=== PATIENT | female | born 1935 | race Caucasian/White ===

== ENCOUNTER 2016-07-05 11:31 | Inpatient (IN) | payer MEDICARE ==
[2016-07-05 12:19] LABS: ABSOLUTE BASOPHILS # (AUTO) 0.1 10^3/uL (0.0-0.2); ABSOLUTE EOSINOPHILS # (AUTO) 0.1 10^3/uL (0.0-0.6); ABSOLUTE LYMPHOCYTES (AUTO) 1.3 10^3/uL (0.5-4.7); ABSOLUTE MONOCYTES (AUTO) 1.2 10^3/uL (0.1-1.4); ABSOLUTE NEUT (AUTO) 15.1 10^3/uL (1.7-8.2); BASOPHILS % (AUTO) 0.7 % (0-2); EOSINOPHILS % (AUTO) 0.4 % (0-6); HEMATOCRIT 33.5 % (36.0-47.0); HEMOGLOBIN 10.7 g/dL (12.0-15.5); HGB HCT DIFFERENCE -1.4; LYMPHOCYTES % (AUTO) 7.4 % (13-45); MEAN CORPUSCULAR HEMOGLOBIN 33.1 pg (27.0-33.4); MEAN CORPUSCULAR VOLUME 104 fl (80-97); MONOCYTES % (AUTO) 6.8 % (3-13); RED BLOOD COUNT 3.24 10^6/uL (3.72-5.28); RED CELL DISTRIBUTION WIDTH 13.2 % (11.5-14.0); SEGMENTED NEUTROPHILS % (AUTO) 84.7 % (42-78); WHITE BLOOD COUNT 17.9 10^3/uL (4.0-10.5)
[2016-07-05 12:46] LABS: ALANINE AMINOTRANSFERASE 21 U/L (9-52); ALBUMIN 3.3 g/dL (3.5-5.0); ALKALINE PHOSPHATASE 74 U/L (38-126); ANION GAP 11 (5-19); ASPARTATE AMINO TRANSFERASE 17 U/L (14-36); BILIRUBIN,TOTAL 0.7 mg/dL (0.2-1.3); BLOOD UREA NITROGEN 16 mg/dL (7-20); CALCIUM 8.7 mg/dL (8.4-10.2); CARBON DIOXIDE 28 mmol/L (22-30); CHLORIDE 96 mmol/L (98-107); CREATININE RESULT 0.54 mg/dL (0.52-1.25); GLUCOSE 118 mg/dL (75-110); POTASSIUM 4.6 mmol/L (3.6-5.0); SODIUM 135.3 mmol/L (137-145); TOTAL PROTEIN 6.8 g/dL (6.3-8.2)
[2016-07-05 12:47] LABS: CREATINE KINASE < 20 U/L (30-135)
[2016-07-05 12:56] LABS: CREATINE KINASE MB 0.36 ng/mL (<4.55)
[2016-07-05 12:57] LABS: TROPONIN I < 0.012 ng/mL
[2016-07-05] MEDS ORDERED: IPRATROPIUM/ALBUTEROL 0.5-2.5 MG/3 ML AMPUL NEB ONE (13:30)
[2016-07-05] MEDS ORDERED: CEFEPIME 1 GM/D5W RTU 50 ML IV ONE (14:49)
[2016-07-05] MEDS ORDERED: VANCOMYCIN HCL INJ 1000 MG VIAL IV ONE (14:49)
[2016-07-05] MEDS ORDERED: LEVALBUTEROL HCL NEB 1.25 MG/3 ML AMPUL NEB PRN (15:17)
[2016-07-05 15:25] LABS: APPEARANCE,URINE SLIGHTLY-CLOUDY; BILIRUBIN,URINE NEGATIVE (NEGATIVE); GLUCOSE, URINE NEGATIVE (NEGATIVE); KETONES,URINE NEGATIVE (NEGATIVE); LEUKOCYTE ESTERASE,URINE LARGE (NEGATIVE); NITRITE,URINE NEGATIVE (NEGATIVE); PROTEIN,URINE NEGATIVE (NEGATIVE); URINE SPECIFIC GRAVITY 1.017; UROBILINOGEN,URINE NEGATIVE mg/dL (<2.0)
--- NOTE | 2016-07-05 15:48 | ER Document Report ---
ED General - General Chief Complaint: Abdominal Pain >50 Stated Complaint: ABDOMINAL PAIN Time seen by provider: 15:46 Mode of Arrival: Ambulatory Information source: Patient Notes: This is a 80-year-old female with a history of CHF, recent admission to [facility], who is brought into the emergency room with left chest wall pain along with increased labored breathing. Patient states she's had some chills and subjective fevers. TRAVEL OUTSIDE OF THE [place] IN LAST 30 DAYS: No - HPI Onset: Yesterday Onset/Duration: Gradual Quality of pain: Dull Severity: None Pain Level: Denies Associated symptoms: Shortness of breath Exacerbated by: Movement Relieved by: Denies Similar symptoms previously: Yes Recently seen / treated by doctor: No - Related Data Allergies/Adverse Reactions: No Known Allergies Allergy (Verified 07/05/16 12:02) Home Medications: Current Home Medications Atorvastatin Calcium 40 mg PO QHS 07/05/16 [History] Past Medical History - General Information source: Patient - Social History Smoking Status: Former Smoker Cigarette use (# per day): No Chew tobacco use (# tins/day): No Frequency of alcohol use: None Drug Abuse: None Lives with: Family Family History: Reviewed & Not Pertinent Patient has suicidal ideation: No Patient has homicidal ideation: No - Past Medical History Cardiac Medical History: Reports: Hx Atrial Fibrillation, Hx Congestive Heart Failure, Hx Hypertension Pulmonary Medical History: Reports: Hx Asthma, Hx Bronchitis, Hx COPD, Hx Pneumonia Denies: Hx Sleep Apnea, Hx Tuberculosis Renal/ Medical History: Denies: Hx Peritoneal Dialysis GI Medical History: Reports: Hx Gastroesophageal Reflux Disease Musculoskeltal Medical History: Reports Hx Arthritis Psychiatric Medical History: Reports: Hx Depression Past Surgical History: Reports: Hx Abdominal Surgery - abd hernia repair, Hx Appendectomy, Hx Cholecystectomy, Hx Neurologic Surgery - TENS unit, Hx Orthopedic Surgery - left wrist; left knee replacement. Denies: Hx Pacemaker - Immunizations Hx Diphtheria, Pertussis, Tetanus Vaccination: No Hx Pneumococcal Vaccination: 06/21/10 Review of Systems - Review of Systems Constitutional: denies: Chills, Fever EENT: No symptoms reported Cardiovascular: See HPI Respiratory: See HPI Gastrointestinal: No symptoms reported Genitourinary: No symptoms reported Female Genitourinary: No symptoms reported Musculoskeletal: No symptoms reported Skin: No symptoms reported Hematologic/Lymphatic: No symptoms reported Neurological/Psychological: See HPI Physical Exam - Vital signs Vitals: Temp Pulse Resp BP Pulse Ox 98.7 F 72 18 124/65 94 07/05/16 11:39 07/05/16 11:39 07/05/16 11:39 07/05/16 11:39 07/05/16 11:39 Notes: Physical exam: GENERAL: 80-year-old female, alert and oriented 3, she does appear dyspneic HEAD: Atraumatic, normocephalic. EYES: Pupils equal round and reactive to light, extraocular movements intact, sclera anicteric, conjunctiva are normal. ENT: TMs normal, nares patent, oropharynx clear without exudates. Moist mucous membranes. NECK: Normal range of motion, supple without lymphadenopathy or JVD. LUNGS: Decreased breath sounds at the left base. HEART: Regular rate and rhythm without murmurs, rubs or gallops. ABDOMEN: Soft, nontender, normoactive bowel sounds. No guarding, no rebound. No masses appreciated. EXTREMITIES: Normal range of motion, no pitting or edema. No clubbing or cyanosis. NEUROLOGICAL: Cranial nerves II through XII grossly intact. Normal speech, normal gait. PSYCH: Normal mood, normal affect. SKIN: Warm, Dry, normal turgor, no rashes or lesions noted. Course - Re-evaluation Re-evalutation: 07/05/16 15:47 Note: The patient does appear to have some dyspnea and she does have a history of COPD in the past as well as CHF. The chest x-ray does show a consolidation in the left lower lobe with possible effusion. Her labs reveal a leukocytosis. The patient does have a recent admission so I will cover her for hospital- acquired pneumonia. 07/05/16 15:48 I discussed the case with the hospitalist (Dr Lacey) : he advised me to put Dr. Carreno as the admitting physician so that he will olive picker care on Wednesday or Wednesday, and that the hospitalist service will cover her until that time (i.e: He will be taking care of the admission this evening). 07/05/16 21:03 - Vital Signs Vital signs: Temp Pulse Resp BP Pulse Ox 97.7 F 84 20 111/63 99 07/05/16 18:15 07/05/16 20:40 07/05/16 20:40 07/05/16 18:15 07/05/16 18:15 - Laboratory Result Diagrams: 07/05/16 12:00 07/05/16 12:00 Laboratory results interpreted by me: 07/05/16 07/05/16 07/05/16 12:00 12:00 12:00 WBC 17.9 H RBC 3.24 L Hgb 10.7 L Hct 33.5 L MCV 104 H Seg Neutrophils % 84.7 H Lymphocytes % 7.4 L Absolute Neutrophils 15.1 H Sodium 135.3 L Chloride 96 L Glucose 118 H Creatine Kinase < 20 L NT-Pro-B Natriuret Pep 1680 H Albumin 3.3 L Ur Leukocyte Esterase Urine Ascorbic Acid 07/05/16 14:50 WBC RBC Hgb Hct MCV Seg Neutrophils % Lymphocytes % Absolute Neutrophils Sodium Chloride Glucose Creatine Kinase NT-Pro-B Natriuret Pep Albumin Ur Leukocyte Esterase LARGE H Urine Ascorbic Acid 20 H - Diagnostic Test Radiology reviewed: Image reviewed, Reports reviewed - X-ray shows a consolidation in the left lower lobe - EKG Interpretation by Me Rhythm: A.Fib - EKG shows an atrial fibrillation with a ventricular rate of 79, no acute ST-T wave changes Critical Care Note - Critical Care Note Total time excluding time spent on procedures (mins): 60 Discharge - Discharge Clinical Impression: pneumonia Condition: Serious Disposition: ADMITTED INPATIENT Admitting Provider: Ev Lacey is covering Unit Admitted: Telemetry
--- NOTE | 2016-07-05 16:00 | PDOC H&P ---
History of Present Illness Admission Date/PCP: SOPHIA NICOLAS Patient complains of: Left-sided chest pain History of Present Illness: CRUZ DILL is a 80 year old female with history of COPD, atrial fibrillation, hypertension, recently diagnosed with pericardial effusion transferred to [facility] due to tamponade apparently was brought to the emergency room because of left-sided chest pain. The patient was discharged from [facility] last week. According to the family nor pericardiocentesis nor periglandular window was performed. Apparently an echocardiogram was repeated and there was no reported temponade nor significant effusion. She was treated with antibiotic for a "small touch of pneumonia" with unknown antibiotics. The patient apparently is a very poor historian due to underlying dementia and is unreliable and family at bedside. Patient for the past few days has been sleeping more than usual. Her shortness of breath really has not improved. She has intermittent wheezing. She has a dry cough. Earlier today she reports left-sided chest pain is why the patient was brought to the hospital for evaluation. No sweating reported. No diarrhea reported other than prior history of colitis in the past. In the emergency room, chest x-ray revealed left lower lobe infiltrate and the patient was referred for admission. Vancomycin and cefepime was given. Past Medical History Past Medical History: Medication reconciliation pending verification from the patient's pharmacist. Cardiac Medical History: Reports: Atrial Fibrillation, Congestive Heart Failure , Hypertension Pulmonary Medical History: Reports: Asthma, Bronchitis, Chronic Obstructive Pulmonary Disease (COPD), Pneumonia Denies: Sleep Apnea, Tuberculosis GI Medical History: Reports: Gastroesophageal Reflux Disease Musculoskeltal Medical History: Reports: Arthritis Psychiatric Medical History: Reports: Depression Past Surgical History Past Surgical History: Reports: Appendectomy, Cholecystectomy, Orthopedic Surgery - left wrist; left knee replacement Denies: Pacemaker Social History Information Source: Relative Smoking Status: Former Smoker Frequency of Alcohol Use: None Hx Recreational Drug Use: No Drugs: None Hx Prescription Drug Abuse: No Family History Family History: None, Reviewed & Not Pertinent Parental Family History Reviewed: Yes Children Family History Reviewed: Yes Sibling(s) Family History Reviewed.: Yes Medication/Allergy Home Medications: Albuterol Sulfate [Proair HFA] 2 puff IH Q4H PRN 05/05/13 Cetirizine HCl [Zyrtec 10 mg Tablet] 1 tab PO DAILY 05/05/13 Diltiazem HCl [Diltiazem ER] 180 mg PO QAM 05/05/13 Duloxetine HCl [Cymbalta] 60 mg PO DAILY 05/05/13 Lisinopril 10 mg PO DAILY 05/05/13 Montelukast Sodium 10 mg PO DAILY 05/05/13 Oxybutynin Chloride 5 mg PO DAILY 05/05/13 Pnv with Ca,No.72/Iron,Carb/FA [ Plus Iron Tablet] 1 each PO DAILY 05/05 Ca Cmb No.1/Vit D3/B-6/FA/B12 [Vitamin D3 1,000 Unit Tablet] 1 tab PO DAILY 07/04 Donepezil HCl [Aricept 5 mg Tablet] 5 mg PO DAILY 02/19/14 Furosemide [Lasix 20 mg Tablet] 20 mg PO PRN PRN 02/19/14 Lorazepam [Ativan 1 mg Tablet] 1 mg PO BID 02/19/14 Tiotropium Thomas [Spiriva Handihaler 18 mcg/dose (30 Dose)] 1 cap IH DAILY 07/04 Alendronate Sodium [Fosamax 70 mg Tablet] 70 mg PO ASDIR PRN 06/19/16 Apixaban [Eliquis] 5 mg PO BID 06/19/16 Allergies/Adverse Reactions: No Known Allergies Allergy (Verified 07/05/16 12:02) Review of Systems ROS unobtainable: Due to mental status, Other - Ordered and provided on the history, no other symptoms reported. There is no diaphoresis no nausea or vomiting, no syncopal episode reported. Family provided information. Patient does not complain until today. Physical Exam Vital Signs: Temp Pulse Resp BP Pulse Ox 98.7 F 72 22 H 131/74 H 98 07/05/16 12:02 07/05/16 11:39 07/05/16 14:49 07/05/16 14:49 07/05/16 14:49 Intake & Output 07/04/16 07/05/16 07/06/16 06:59 06:59 06:59 Weight 61.6 kg General appearance: PRESENT: mild distress, well-developed, well-nourished Head exam: PRESENT: atraumatic, normocephalic Eye exam: PRESENT: conjunctiva pink, EOMI, PERRLA - Sluggish bilateral. ABSENT : scleral icterus Ear exam: PRESENT: normal external ear exam. ABSENT: drainage Mouth exam: PRESENT: moist, neck supple, tongue midline Throat exam: ABSENT: post pharyngeal erythema, tonsillar erythema, tonsillar exudate Neck exam: ABSENT: carotid bruit, JVD, lymphadenopathy, thyromegaly Respiratory exam: PRESENT: decreased breath sounds - Left lower lung field, rales - Dry rales. Bilateral lower lung e[place], wheezes - Occasional posteriorly bilateral. ABSENT: rhonchi Cardiovascular exam: PRESENT: irregular rhythm, systolic murmur - Aortic area.. ABSENT: diastolic murmur, rubs Pulses: PRESENT: normal dorsalis pedis pul Vascular exam: PRESENT: normal capillary refill GI/Abdominal exam: PRESENT: normal bowel sounds, soft. ABSENT: distended, guarding, mass, organolmegaly, rebound, tenderness Rectal exam: PRESENT: deferred Extremities exam: PRESENT: full ROM. ABSENT: calf tenderness, clubbing, pedal edema Neurological exam: PRESENT: alert, awake Psychiatric exam: PRESENT: appropriate affect, normal mood. ABSENT: agitated Skin exam: PRESENT: dry, intact, warm. ABSENT: cyanosis, rash Results Laboratory Results: 07/05/16 12:00 07/05/16 12:00 07/05/16 07/05/16 07/05/16 12:00 12:00 14:50 WBC 17.9 H RBC 3.24 L Hgb 10.7 L Hct 33.5 L MCV 104 H MCH 33.1 MCHC 32.0 RDW 13.2 Plt Count 391 Seg Neutrophils % 84.7 H Lymphocytes % 7.4 L Monocytes % 6.8 Eosinophils % 0.4 Basophils % 0.7 Absolute Neutrophils 15.1 H Absolute Lymphocytes 1.3 Absolute Monocytes 1.2 Absolute Eosinophils 0.1 Absolute Basophils 0.1 Sodium 135.3 L Potassium 4.6 Chloride 96 L Carbon Dioxide 28 Anion Gap 11 BUN 16 Creatinine 0.54 Est GFR ( Amer) > 60 Est GFR (Non-Af Amer) > 60 Glucose 118 H Calcium 8.7 Total Bilirubin 0.7 AST 17 ALT 21 Alkaline Phosphatase 74 Total Protein 6.8 Albumin 3.3 L Urine Color YELLOW Urine Appearance SLIGHTLY-CLOUDY Urine pH 6.0 Ur Specific [place] 1.017 Urine Protein NEGATIVE Urine Glucose (UA) NEGATIVE Urine Ketones NEGATIVE Urine Blood NEGATIVE Urine Nitrite NEGATIVE Ur Leukocyte Esterase LARGE H Urine WBC (Auto) 18 Urine RBC (Auto) 1 07/05/16 07/05/16 12:00 12:00 Creatine Kinase < 20 L CK-MB (CK-2) 0.36 Troponin I < 0.012 NT-Pro-B Natriuret Pep 1680 H Impressions: Chest X-Ray 07/05/16 00:00 IMPRESSION: Consolidative process in the left lung base as noted above Assessment & Plan - Diagnosis (1) COPD exacerbation Is this a current diagnosis for this admission?: Yes (2) Pneumonia Qualifiers: Pneumonia type: due to unspecified organism Laterality: left Lung location: lower lobe of lung Qualified Code(s): J18.1 - Lobar pneumonia, unspecified organism Is this a current diagnosis for this admission?: Yes (3) Pericardial effusion Is this a current diagnosis for this admission?: Yes (4) Anemia of chronic disease Is this a current diagnosis for this admission?: Yes (5) Dementia Qualifiers: Dementia type: unspecified type Dementia behavioral disturbance: without behavioral disturbance Qualified Code(s): F03.90 - Unspecified dementia without behavioral disturbance Is this a current diagnosis for this admission?: Yes (6) Depression Qualifiers: Depression Type: unspecified Qualified Code(s): F32.9 - Major depressive disorder, single episode, unspecified Is this a current diagnosis for this admission?: Yes (7) Hypertension Qualifiers: Hypertension type: essential hypertension Qualified Code(s): I10 - Essential (primary) hypertension Is this a current diagnosis for this admission?: Yes (8) Osteoarthritis Qualifiers: Osteoarthritis location: unspecified site Osteoarthritis type: unspecified Qualified Code(s): M19.90 - Unspecified osteoarthritis, unspecified site Is this a current diagnosis for this admission?: Yes (9) Osteoporosis Is this a current diagnosis for this admission?: Yes (10) Chronic atrial fibrillation Is this a current diagnosis for this admission?: Yes (11) Type II diabetes mellitus Qualifiers: Diabetes mellitus complication status: with unspecified complications Diabetes mellitus longterm insulin use: without longterm use Qualified Code(s): E11.8 - Type 2 diabetes mellitus with unspecified complications; Z79.4 - MCC (current) use of insulin Is this a current diagnosis for this admission?: Yes - Time Time Spent: 50 to 70 Minutes - Inpatient Certification Based on my medical assessment, after consideration of the patient's comorbidities, presenting symptoms, or acuity I expect that the services needed warrant INPATIENT care.: Yes I certify that my determination is in accordance with my understanding of Medicare's requirements for reasonable and necessary INPATIENT services [42 CFR 412.3e].: Yes Medical Necessity: Significant Comorbidiites Make Outpatient Treatment Too Risky , Need Close Monitoring Due to Risk of Patient Decompensation, Need for IV Antibiotics Post Hospital Care: D/C Pediatric Immunologist Documentation - Plan Summary Plan Summary: The patient will be admitted to telemetry. We will culture the sputum and blood. We will begin Levaquin and cefepime intravenously. We will gently hydrate the patient. Round without bronchodilators will be started as well with oral steroids. We will obtain CT scan of the chest to check for loculated effusion and likewise check pericardial effusion as well. She will be on adequate place for her A. fib and no need for DVT prophylaxis. Supplemental oxygen will be given we will continue Cardizem. We will begin sliding scale insulin coverage as well. Further testing depending on initial evaluation as outlined above. We will obtain records of recent hospitalization from [facility].
[2016-07-05] MEDS ORDERED: DONEPEZIL HCL 5 MG TABLET PO ONE (16:30)
[2016-07-05] MEDS ORDERED: OXYBUTYNIN CHLORIDE 5 MG TABLET PO ONE (16:30)
[2016-07-05] MEDS ORDERED: PREDNISONE 20 MG TABLET PO ONE ×2 (16:30→20:15)
[2016-07-05] MEDS ORDERED: LISINOPRIL 10 MG TABLET PO ONE (16:30)
[2016-07-05] MEDS ORDERED: DULOXETINE HCL 30 MG CAPSULE.DR PO ONE ×2 (16:30→20:15)
[2016-07-05] MEDS ORDERED: MONTELUKAST SODIUM 10 MG TABLET PO ONE (17:00)
[2016-07-05] MEDS ORDERED: DILTIAZEM HCL 180 MG CAPSULE.CR PO ONE (17:00)
[2016-07-05] MEDS ORDERED: APIXABAN 5 MG TABLET PO SCH (18:00)
[2016-07-05] MEDS ORDERED: LEVOFLOXACIN 750 MG/D5W RTU 750 MG/150 ML RTUPB IV SCH (18:00)
--- NOTE | 2016-07-05 18:34 | EKG REPORT ---
SEVERITY:- ABNORMAL ECG - ATRIAL FIBRILLATION, V-RATE 56-94 PAIRED VENTRICULAR PREMATURE COMPLEXES ABERRANT COMPLEX, POSSIBLY SUPRAVENTRICULAR PROBABLE ANTEROSEPTAL INFARCT, AGE INDETERM : Confirmed by: Robyn Stratton MD 05-Jul-2016 18:33:47
[2016-07-05] MEDS: NORMAL SALINE 1000 ML 1,000 ML IV PRN (18:40)
[2016-07-05] MEDS: LORAZEPAM 1 MG TABLET PO SCH (19:56)
[2016-07-05] MEDS: LEVALBUTEROL HCL NEB 1.25 MG/3 ML AMPUL NEB SCH (20:38)
[2016-07-05] MEDS: IPRATROPIUM BROMIDE 0.02% NEB 0.5 MG/2.5 ML AMPUL NEB SCH (20:39)
[2016-07-05] MEDS ORDERED: CEFEPIME 2 GM/D5W RTU 2 GM/50 ML RTUPB IV SCH (22:00)
[2016-07-05] MEDS ORDERED: CEFEPIME INJ 2 GM VIAL ONE (23:20)
[2016-07-05] MEDS: DONEPEZIL HCL 5 MG TABLET PO SCH (23:55)
[2016-07-05] MEDS: LISINOPRIL 10 MG TABLET PO SCH (23:56)
[2016-07-05] MEDS: GUAIFENESIN 600 MG TABLET.SA PO SCH (23:57)
[2016-07-05] MEDS: APIXABAN 5 MG TABLET PO SCH (23:57)
[2016-07-06] MEDS: MONTELUKAST SODIUM 10 MG TABLET PO SCH ×2 (00:03→22:55)
[2016-07-06] MEDS: LEVALBUTEROL HCL NEB 1.25 MG/3 ML AMPUL NEB SCH ×4 (02:32→19:45)
[2016-07-06] MEDS: IPRATROPIUM BROMIDE 0.02% NEB 0.5 MG/2.5 ML AMPUL NEB SCH ×4 (02:32→19:45)
[2016-07-06 06:03] LABS: HEMATOCRIT 31.5 % (36.0-47.0); HGB HCT DIFFERENCE -1.5; MEAN CORPUSCULAR HGB CONC 31.8 g/dL (32.0-36.0); MEAN CORPUSCULAR VOLUME 104 fl (80-97); RED BLOOD COUNT 3.04 10^6/uL (3.72-5.28); RED CELL DISTRIBUTION WIDTH 13.1 % (11.5-14.0); WHITE BLOOD COUNT 13.6 10^3/uL (4.0-10.5)
[2016-07-06 06:18] LABS: ANION GAP 13 (5-19); BLOOD UREA NITROGEN 17 mg/dL (7-20); CALCIUM 8.6 mg/dL (8.4-10.2); CARBON DIOXIDE 26 mmol/L (22-30); CHLORIDE 97 mmol/L (98-107); CREATININE RESULT 0.65 mg/dL (0.52-1.25); GLUCOSE 197 mg/dL (75-110); POTASSIUM 4.8 mmol/L (3.6-5.0)
[2016-07-06 06:42] LABS: BASOPHILS % (MANUAL) 0 % (0-2); EOSINOPHILS % (MANUAL) 0 % (0-6); LYMPHOCYTES % (MANUAL) 2 % (13-45); TOTAL CELLS COUNTED 100; TOXIC GRANULATION SLIGHT
[2016-07-06 06:43] LABS: OVALOCYTES 1+; PLATELET CLUMPS PRESENT
[2016-07-06] MEDS: LANSOPRAZOLE 30 MG TAB.RAP.DR PO SCH (07:08)
[2016-07-06] MEDS: DILTIAZEM HCL 180 MG CAPSULE.CR PO SCH (08:50)
[2016-07-06] MEDS ORDERED: LISINOPRIL 10 MG TABLET PO SCH (10:00)
[2016-07-06] MEDS ORDERED: (PENDING PHARMACY ID) (Duloxetine Hcl [Cymbalta] 30 MG) PO SCH (10:00)
[2016-07-06] MEDS: TIOTROPIUM BROMIDE DPI 5 CAP/KIT (18 MCG/CAP) IH SCH (10:12)
[2016-07-06] MEDS: GUAIFENESIN 600 MG TABLET.SA PO SCH ×2 (10:12→22:55)
[2016-07-06] MEDS: PREDNISONE 20 MG TABLET PO SCH (10:12)
[2016-07-06] MEDS: APIXABAN 5 MG TABLET PO SCH ×2 (10:12→22:55)
[2016-07-06] MEDS: DULOXETINE HCL 30 MG CAPSULE.DR PO SCH (10:12)
[2016-07-06] MEDS: CEFEPIME HCL 2 GM in DEXTROSE 5%-WATER 50 ML IV SCH ×2 (10:14→22:55)
[2016-07-06] MEDS: OXYBUTYNIN CHLORIDE 5 MG TABLET PO SCH (10:18)
[2016-07-06] MEDS: LORAZEPAM 1 MG TABLET PO SCH ×2 (10:22→17:28)
--- NOTE | 2016-07-06 17:45 | PDOC PROGRESS REPORT ---
Subjective Progress Note for:: 07/06/16 Subjective:: 80 yr old woman that is admitted for left lower lobe pneumonia. She is feeling better and chest pain and dyspnea have decreased. We will monitor her closely.We will follow up cultures and daily CBC. Physical Exam Vital Signs: Temp Pulse Resp BP Pulse Ox 98.2 F 73 20 103/53 L 99 07/06/16 16:24 07/06/16 16:24 07/06/16 16:24 07/06/16 16:24 07/06/16 16:24 Intake & Output 07/05/16 07/06/16 07/07/16 06:59 06:59 06:59 Intake Total 1252 Balance 1252 Weight 58 kg General appearance: PRESENT: no acute distress, well-developed, well-nourished Head exam: PRESENT: atraumatic Eye exam: PRESENT: EOMI, PERRLA Ear exam: PRESENT: normal external ear exam, TM's normal bilaterally Mouth exam: PRESENT: neck supple, tongue midline Respiratory exam: PRESENT: crackles, decreased breath sounds Cardiovascular exam: PRESENT: irregular rhythm, +S1, +S2 Pulses: PRESENT: +1 pedal pulses bilateral GI/Abdominal exam: PRESENT: normal bowel sounds, soft Musculoskeletal exam: PRESENT: ambulatory Neurological exam: PRESENT: oriented to person, oriented to place, oriented to time, CN II-XII grossly intact Psychiatric exam: PRESENT: normal mood Results Laboratory Results: 07/06/16 05:49 07/06/16 05:49 07/06/16 07/06/16 05:49 05:49 WBC 13.6 H RBC 3.04 L Hgb 10.0 L Hct 31.5 L MCV 104 H MCH 33.0 MCHC 31.8 L RDW 13.1 Plt Count 345 Seg Neutrophils % Not Reportable Lymphocytes % Not Reportable Monocytes % Not Reportable Eosinophils % Not Reportable Basophils % Not Reportable Absolute Neutrophils Not Reportable Absolute Lymphocytes Not Reportable Absolute Monocytes Not Reportable Absolute Eosinophils Not Reportable Absolute Basophils Not Reportable Sodium 136.0 L Potassium 4.8 Chloride 97 L Carbon Dioxide 26 Anion Gap 13 BUN 17 Creatinine 0.65 Est GFR ( Amer) > 60 Est GFR (Non-Af Amer) > 60 Glucose 197 H Calcium 8.6 07/05/16 07/05/16 16:07 16:07 Creatine Kinase < 20 L Troponin I < 0.012 Impressions: Chest X-Ray 07/05/16 00:00 IMPRESSION: Consolidative process in the left lung base as noted above Chest CT 07/05/16 15:27 IMPRESSION: 1. Re- demonstration of a left sided pleural effusion, layering. Adjacent compressive atelectasis versus consolidation. Background of peripheral scarring/ fibrosis bilaterally. 2. Scant pericardial effusion. Ectatic ascending aorta. Assessment & Plan - Diagnosis (1) Pneumonia Qualifiers: Pneumonia type: due to unspecified organism Laterality: left Lung location: lower lobe of lung Qualified Code(s): J18.1 - Lobar pneumonia, unspecified organism Is this a current diagnosis for this admission?: YesPlan: Ct with Cefepime 2 G q12h IV; Levaquin 750 mg q48h IV; Ct with Oxygen by N/C 2 L /min; ct Mucinex 600 mg BID po; ct with Tylenol 650 mg q6h po prn; f/u cultures. (2) COPD exacerbation Is this a current diagnosis for this admission?: YesPlan: Ct with Oxygen by N/C 2 L/min; Atropine 0.5 mg q6h; Xopenex 1.25 mg q6h; Xopenex 1.25 mg q2h pr; Ct with Prednisone 60 mg qd po; Singulair 10 mg qd; Spiriva 18 mcg daily. (3) Atrial fibrillation with RVR Is this a current diagnosis for this admission?: YesPlan: Ct with Eliquis 5 mg BID PO; Cardizem CD 180 mg daily po. (4) Hypertension Qualifiers: Hypertension type: essential hypertension Qualified Code(s): I10 - Essential (primary) hypertension Is this a current diagnosis for this admission?: YesPlan: Ct with Lisinopril 10 mg daily po; Cardizem CD 180 mg daily po; 2 G sodium diet. (5) Congestive heart failure Is this a current diagnosis for this admission?: YesPlan: Ct with daily wt; strict input/out part chart; Lisinopril 10 mg daily po. (6) Reflux esophagitis Is this a current diagnosis for this admission?: YesPlan: Ct with Prevacid 30 mg daily po. (7) Overactive bladder Is this a current diagnosis for this admission?: YesPlan: Ct with Oxybutynin 5 mg daily po. (8) Anemia of chronic disease Is this a current diagnosis for this admission?: YesPlan: Ct with daily CBC. (9) Depression Qualifiers: Depression Type: unspecified Qualified Code(s): F32.9 - Major depressive disorder, single episode, unspecified Is this a current diagnosis for this admission?: YesPlan: Ct with Cymbalta 30 mg daily pO. (10) Anxiety disorder Is this a current diagnosis for this admission?: YesPlan: Ct with Ativan 0.5 mg daily po prn. (11) Dementia Qualifiers: Dementia type: unspecified type Dementia behavioral disturbance: without behavioral disturbance Qualified Code(s): F03.90 - Unspecified dementia without behavioral disturbance Is this a current diagnosis for this admission?: YesPlan: Ct with Aricept 5mg qhs po. (12) DVT prophylaxis Is this a current diagnosis for this admission?: YesPlan: Ct with Eliquis 5 mg BID; ct with SCD.
[2016-07-06] MEDS: DONEPEZIL HCL 5 MG TABLET PO SCH (22:55)
[2016-07-06] MEDS: LISINOPRIL 10 MG TABLET PO SCH (22:56)
[2016-07-07] MEDS: IPRATROPIUM BROMIDE 0.02% NEB 0.5 MG/2.5 ML AMPUL NEB SCH ×4 (01:56→19:32)
[2016-07-07] MEDS: LEVALBUTEROL HCL NEB 1.25 MG/3 ML AMPUL NEB SCH ×4 (01:56→19:31)
[2016-07-07] MEDS: LANSOPRAZOLE 30 MG TAB.RAP.DR PO SCH (05:10)
[2016-07-07 06:55] LABS: ABSOLUTE LYMPHOCYTES (AUTO) 0.8 10^3/uL (0.5-4.7); ABSOLUTE MONOCYTES (AUTO) 0.4 10^3/uL (0.1-1.4); ABSOLUTE NEUT (AUTO) 11.6 10^3/uL (1.7-8.2); BASOPHILS % (AUTO) 0.2 % (0-2); HEMATOCRIT 28.8 % (36.0-47.0); HGB HCT DIFFERENCE -1.8; LYMPHOCYTES % (AUTO) 6.5 % (13-45); MEAN CORPUSCULAR HEMOGLOBIN 32.9 pg (27.0-33.4); MEAN CORPUSCULAR HGB CONC 31.2 g/dL (32.0-36.0); MEAN CORPUSCULAR VOLUME 105 fl (80-97); MONOCYTES % (AUTO) 3.4 % (3-13); RED BLOOD COUNT 2.73 10^6/uL (3.72-5.28); RED CELL DISTRIBUTION WIDTH 13.3 % (11.5-14.0); SEGMENTED NEUTROPHILS % (AUTO) 89.9 % (42-78); WHITE BLOOD COUNT 12.9 10^3/uL (4.0-10.5)
[2016-07-07 07:11] LABS: ALANINE AMINOTRANSFERASE 21 U/L (9-52); ALBUMIN 2.9 g/dL (3.5-5.0); ALKALINE PHOSPHATASE 60 U/L (38-126); ANION GAP 11 (5-19); ASPARTATE AMINO TRANSFERASE 22 U/L (14-36); BILIRUBIN,TOTAL 0.2 mg/dL (0.2-1.3); BLOOD UREA NITROGEN 20 mg/dL (7-20); CALCIUM 8.8 mg/dL (8.4-10.2); CARBON DIOXIDE 26 mmol/L (22-30); CHLORIDE 99 mmol/L (98-107); CREATININE RESULT 0.63 mg/dL (0.52-1.25); GLUCOSE 150 mg/dL (75-110); POTASSIUM 5.6 mmol/L (3.6-5.0); SODIUM 135.8 mmol/L (137-145); TOTAL PROTEIN 6.2 g/dL (6.3-8.2)
[2016-07-07] MEDS: DILTIAZEM HCL 180 MG CAPSULE.CR PO SCH (08:26)
[2016-07-07] MEDS: GUAIFENESIN 600 MG TABLET.SA PO SCH ×2 (09:36→21:44)
[2016-07-07] MEDS: APIXABAN 5 MG TABLET PO SCH ×2 (09:36→21:44)
[2016-07-07] MEDS: DULOXETINE HCL 30 MG CAPSULE.DR PO SCH (09:36)
[2016-07-07] MEDS: PREDNISONE 20 MG TABLET PO SCH (09:36)
[2016-07-07] MEDS: OXYBUTYNIN CHLORIDE 5 MG TABLET PO SCH (09:37)
[2016-07-07] MEDS: TIOTROPIUM BROMIDE DPI 5 CAP/KIT (18 MCG/CAP) IH SCH (09:38)
[2016-07-07] MEDS: LORAZEPAM 1 MG TABLET PO SCH ×2 (09:39→17:33)
[2016-07-07] MEDS: CEFEPIME HCL 2 GM in DEXTROSE 5%-WATER 50 ML IV SCH ×2 (09:41→21:40)
[2016-07-07] MEDS ORDERED: SODIUM POLYSTYRENE SULFONATE 15 GM/60 ML PO ONE (14:30)
--- NOTE | 2016-07-07 16:55 | PDOC PROGRESS REPORT ---
Subjective Progress Note for:: 07/07/16 Subjective:: 80 yr old woman that is admitted for left lower lobe pneumonia. She is feeling better and chest pain and dyspnea have decreased. We will monitor her closely.Her urine culture showed E.fecalis group D. We will D/C Levaquin and switch her to Penicillin-V K. Her Potassium was 5.6; we will give her Kayexelate 30 g pox1 and repeat chem. 7 in am. Physical Exam Vital Signs: Temp Pulse Resp BP Pulse Ox 99.3 F 83 20 136/80 H 99 07/07/16 15:54 07/07/16 15:54 07/07/16 15:54 07/07/16 15:54 07/07/16 15:54 Intake & Output 07/06/16 07/07/16 07/08/16 06:59 06:59 06:59 Intake Total 1252 2570 Balance 1252 2570 Weight 58 kg 60.6 kg General appearance: PRESENT: no acute distress, well-developed, well-nourished Head exam: PRESENT: atraumatic, normocephalic Eye exam: PRESENT: EOMI, PERRLA Ear exam: PRESENT: normal external ear exam, TM's normal bilaterally Mouth exam: PRESENT: moist, neck supple Respiratory exam: PRESENT: crackles, decreased breath sounds Cardiovascular exam: PRESENT: irregular rhythm, +S1, +S2 GI/Abdominal exam: PRESENT: normal bowel sounds, soft Neurological exam: PRESENT: alert, awake, oriented to person, oriented to place , oriented to time, CN II-XII grossly intact Psychiatric exam: PRESENT: normal mood Results Laboratory Results: 07/07/16 06:04 07/07/16 06:04 07/07/16 07/07/16 06:04 06:04 WBC 12.9 H RBC 2.73 L Hgb 9.0 L Hct 28.8 L MCV 105 H MCH 32.9 MCHC 31.2 L RDW 13.3 Plt Count 367 Seg Neutrophils % 89.9 H Lymphocytes % 6.5 L Monocytes % 3.4 Eosinophils % 0.0 Basophils % 0.2 Absolute Neutrophils 11.6 H Absolute Lymphocytes 0.8 Absolute Monocytes 0.4 Absolute Eosinophils 0.0 Absolute Basophils 0.0 Sodium 135.8 L Potassium 5.6 H Chloride 99 Carbon Dioxide 26 Anion Gap 11 BUN 20 Creatinine 0.63 Est GFR ( Amer) > 60 Est GFR (Non-Af Amer) > 60 Glucose 150 H Calcium 8.8 Total Bilirubin 0.2 AST 22 ALT 21 Alkaline Phosphatase 60 Total Protein 6.2 L Albumin 2.9 L 07/05/16 07/05/16 16:07 16:07 Creatine Kinase < 20 L Troponin I < 0.012 Impressions: Chest X-Ray 07/05/16 00:00 IMPRESSION: Consolidative process in the left lung base as noted above Chest CT 07/05/16 15:27 IMPRESSION: 1. Re- demonstration of a left sided pleural effusion, layering. Adjacent compressive atelectasis versus consolidation. Background of peripheral scarring/ fibrosis bilaterally. 2. Scant pericardial effusion. Ectatic ascending aorta. Assessment & Plan - Diagnosis (1) Pneumonia Qualifiers: Pneumonia type: due to unspecified organism Laterality: left Lung location: lower lobe of lung Qualified Code(s): J18.1 - Lobar pneumonia, unspecified organism Is this a current diagnosis for this admission?: YesPlan: Ct with Cefepime 2 G q12h IV; Ct with Oxygen by N/C 2 L/min; ct Mucinex 600 mg BID po; ct with Tylenol 650 mg q6h po prn. Add Penicillin -V K. (2) Urinary tract infection Is this a current diagnosis for this admission?: YesPlan: Add Penicillin-V K 500 mg TID. D/C Levaquin. (3) COPD exacerbation Is this a current diagnosis for this admission?: YesPlan: Ct with Oxygen by N/C 2 L/min; Atropine 0.5 mg q6h; Xopenex 1.25 mg q6h; Xopenex 1.25 mg q2h pr; Ct with Prednisone 60 mg qd po; Singulair 10 mg qd; Spiriva 18 mcg daily. (4) Hyperkalemia Is this a current diagnosis for this admission?: YesPlan: Add Kayexalate 30 g pOx1; avoid medications and potassium containing foods. Repeat CMP in am. (5) Atrial fibrillation with RVR Is this a current diagnosis for this admission?: YesPlan: Ct with Eliquis 5 mg BID PO; Cardizem CD 180 mg daily po. (6) Hypertension Qualifiers: Hypertension type: essential hypertension Qualified Code(s): I10 - Essential (primary) hypertension Is this a current diagnosis for this admission?: YesPlan: Ct with Lisinopril 10 mg daily po; Cardizem CD 180 mg daily po; 2 G sodium diet. (7) Diastolic CHF, chronic Is this a current diagnosis for this admission?: YesPlan: Ct with strict in put/output chart; daily wt; Ct with Lisinopril 10 mg daily po ; monitor CMP daily and D/C Lisinopril if persistent hyperkalemia. (8) Congestive heart failure Is this a current diagnosis for this admission?: Yes (9) Reflux esophagitis Is this a current diagnosis for this admission?: YesPlan: Ct with Prevacid 30 mg daily po. (10) Overactive bladder Is this a current diagnosis for this admission?: YesPlan: Ct with Oxybutynin 5 mg daily po. (11) Anemia of chronic disease Is this a current diagnosis for this admission?: YesPlan: Ct with daily CBC. (12) Depression Qualifiers: Depression Type: unspecified Qualified Code(s): F32.9 - Major depressive disorder, single episode, unspecified Is this a current diagnosis for this admission?: YesPlan: Ct with Cymbalta 30 mg daily pO. (13) Anxiety disorder Is this a current diagnosis for this admission?: YesPlan: Ct with Ativan 0.5 mg daily po prn. (14) Dementia Qualifiers: Dementia type: unspecified type Dementia behavioral disturbance: without behavioral disturbance Qualified Code(s): F03.90 - Unspecified dementia without behavioral disturbance Is this a current diagnosis for this admission?: YesPlan: Ct with Aricept 5mg qhs po. (15) DVT prophylaxis Is this a current diagnosis for this admission?: YesPlan: Ct with Eliquis 5 mg BID; ct with SCD.
[2016-07-07] MEDS ORDERED: PENICILLIN V POTASSIUM 500 MG TABLET PO ONE ×2 (17:00→18:00)
[2016-07-07] MEDS: LISINOPRIL 10 MG TABLET PO SCH (21:38)
[2016-07-07] MEDS: DONEPEZIL HCL 5 MG TABLET PO SCH (21:42)
[2016-07-07] MEDS: MONTELUKAST SODIUM 10 MG TABLET PO SCH (21:44)
[2016-07-07] MEDS: PENICILLIN V POTASSIUM 500 MG TABLET PO SCH (21:46)
[2016-07-07] MEDS ORDERED: LEVOFLOXACIN 750 MG TABLET PO SCH (22:00)
[2016-07-08] MEDS: LEVALBUTEROL HCL NEB 1.25 MG/3 ML AMPUL NEB SCH ×4 (02:02→20:10)
[2016-07-08] MEDS: IPRATROPIUM BROMIDE 0.02% NEB 0.5 MG/2.5 ML AMPUL NEB SCH ×4 (02:02→20:10)
[2016-07-08] MEDS: PENICILLIN V POTASSIUM 500 MG TABLET PO SCH ×3 (06:11→23:54)
[2016-07-08] MEDS: LANSOPRAZOLE 30 MG TAB.RAP.DR PO SCH (06:11)
[2016-07-08 08:03] LABS: ABSOLUTE LYMPHOCYTES (AUTO) 0.7 10^3/uL (0.5-4.7); ABSOLUTE MONOCYTES (AUTO) 0.4 10^3/uL (0.1-1.4); ABSOLUTE NEUT (AUTO) 9.7 10^3/uL (1.7-8.2); BASOPHILS % (AUTO) 0.1 % (0-2); HEMATOCRIT 25.8 % (36.0-47.0); HEMOGLOBIN 8.8 g/dL (12.0-15.5); HGB HCT DIFFERENCE 0.6; LYMPHOCYTES % (AUTO) 6.9 % (13-45); MEAN CORPUSCULAR HEMOGLOBIN 35.1 pg (27.0-33.4); MEAN CORPUSCULAR HGB CONC 34.2 g/dL (32.0-36.0); MEAN CORPUSCULAR VOLUME 103 fl (80-97); MONOCYTES % (AUTO) 3.6 % (3-13); RED BLOOD COUNT 2.51 10^6/uL (3.72-5.28); RED CELL DISTRIBUTION WIDTH 13.5 % (11.5-14.0); SEGMENTED NEUTROPHILS % (AUTO) 89.4 % (42-78); WHITE BLOOD COUNT 10.8 10^3/uL (4.0-10.5)
[2016-07-08] MEDS: DILTIAZEM HCL 180 MG CAPSULE.CR PO SCH (08:15)
[2016-07-08 08:21] LABS: ALANINE AMINOTRANSFERASE 28 U/L (9-52); ALBUMIN 2.7 g/dL (3.5-5.0); ALKALINE PHOSPHATASE 52 U/L (38-126); ANION GAP 10 (5-19); ASPARTATE AMINO TRANSFERASE 26 U/L (14-36); BILIRUBIN,TOTAL 0.2 mg/dL (0.2-1.3); BLOOD UREA NITROGEN 17 mg/dL (7-20); CALCIUM 8.5 mg/dL (8.4-10.2); CARBON DIOXIDE 27 mmol/L (22-30); CHLORIDE 100 mmol/L (98-107); CREATININE RESULT 0.56 mg/dL (0.52-1.25); GLUCOSE 135 mg/dL (75-110); POTASSIUM 4.3 mmol/L (3.6-5.0); SODIUM 137.3 mmol/L (137-145); TOTAL PROTEIN 6.2 g/dL (6.3-8.2)
[2016-07-08] MEDS: LORAZEPAM 1 MG TABLET PO SCH ×2 (09:29→18:04)
[2016-07-08] MEDS: PREDNISONE 20 MG TABLET PO SCH (09:30)
[2016-07-08] MEDS: APIXABAN 5 MG TABLET PO SCH ×2 (09:30→23:54)
[2016-07-08] MEDS: GUAIFENESIN 600 MG TABLET.SA PO SCH ×2 (09:30→23:54)
[2016-07-08] MEDS: OXYBUTYNIN CHLORIDE 5 MG TABLET PO SCH (09:30)
[2016-07-08] MEDS: CEFEPIME HCL 2 GM in DEXTROSE 5%-WATER 50 ML IV SCH ×2 (09:31→23:56)
[2016-07-08] MEDS: DULOXETINE HCL 30 MG CAPSULE.DR PO SCH (09:31)
[2016-07-08] MEDS: TIOTROPIUM BROMIDE DPI 5 CAP/KIT (18 MCG/CAP) IH SCH (09:32)
--- NOTE | 2016-07-08 12:23 | PDOC PROGRESS REPORT ---
Subjective Progress Note for:: 07/08/16 Subjective:: 80 yr old woman that is admitted for left lower lobe pneumonia. She is feeling better and chest pain and dyspnea have decreased. We will monitor her closely.Her urine culture showed E.fecalis group D. We will D/C Levaquin and switch her to Penicillin-V K. Her Potassium was 5.6; we will give her Kayexelate 30 g pox1 and repeat chem 7 showed potassium of 4.6. I spoke with pt' s daughter who is her POA and she wants her to go for short term REHAB at [facility]. I spoke with pt's nurse to f/u with wedding planner to arrange for transfer to [facility] on 07/09/2016. Physical Exam Vital Signs: Temp Pulse Resp BP Pulse Ox 98.3 F 80 20 133/64 H 100 07/08/16 08:05 07/08/16 08:05 07/08/16 08:05 07/08/16 08:05 07/08/16 08:05 Intake & Output 07/07/16 07/08/16 07/09/16 06:59 06:59 06:59 Intake Total 2570 3027 Balance 2570 3027 Weight 60.6 kg 62.2 kg General appearance: PRESENT: no acute distress, well-developed, well-nourished Head exam: PRESENT: atraumatic, normocephalic Eye exam: PRESENT: EOMI, PERRLA Ear exam: PRESENT: normal external ear exam, TM's normal bilaterally Mouth exam: PRESENT: moist, neck supple Respiratory exam: PRESENT: crackles, decreased breath sounds Cardiovascular exam: PRESENT: irregular rhythm, +S1, +S2 GI/Abdominal exam: PRESENT: normal bowel sounds, soft Additional comments: Ambulatory dysfunction due to deconditioning Neurological exam: PRESENT: alert, awake, oriented to person, oriented to place , oriented to time Psychiatric exam: PRESENT: normal mood Results Laboratory Results: 07/08/16 07:19 07/08/16 07:19 07/08/16 07/08/16 07:19 07:19 WBC 10.8 H RBC 2.51 L Hgb 8.8 L Hct 25.8 L MCV 103 H MCH 35.1 H MCHC 34.2 RDW 13.5 Plt Count 369 Seg Neutrophils % 89.4 H Lymphocytes % 6.9 L Monocytes % 3.6 Eosinophils % 0.0 Basophils % 0.1 Absolute Neutrophils 9.7 H Absolute Lymphocytes 0.7 Absolute Monocytes 0.4 Absolute Eosinophils 0.0 Absolute Basophils 0.0 Sodium 137.3 Potassium 4.3 Chloride 100 Carbon Dioxide 27 Anion Gap 10 BUN 17 Creatinine 0.56 Est GFR ( Amer) > 60 Est GFR (Non-Af Amer) > 60 Glucose 135 H Calcium 8.5 Total Bilirubin 0.2 AST 26 ALT 28 Alkaline Phosphatase 52 Total Protein 6.2 L Albumin 2.7 L 07/07/16 09:00 Sputum Gram Stain - Final 07/05/16 07/05/16 16:07 16:07 Creatine Kinase < 20 L Troponin I < 0.012 Impressions: Chest X-Ray 07/05/16 00:00 IMPRESSION: Consolidative process in the left lung base as noted above Chest CT 07/05/16 15:27 IMPRESSION: 1. Re- demonstration of a left sided pleural effusion, layering. Adjacent compressive atelectasis versus consolidation. Background of peripheral scarring/ fibrosis bilaterally. 2. Scant pericardial effusion. Ectatic ascending aorta. Assessment & Plan - Diagnosis (1) Pneumonia Qualifiers: Pneumonia type: due to unspecified organism Laterality: left Lung location: lower lobe of lung Qualified Code(s): J18.1 - Lobar pneumonia, unspecified organism Is this a current diagnosis for this admission?: YesPlan: Ct with Cefepime 2 G q12h IV; Ct with Oxygen by N/C 2 L/min; ct Mucinex 600 mg BID po; ct with Tylenol 650 mg q6h po prn. Add Penicillin -V K. (2) Urinary tract infection Is this a current diagnosis for this admission?: YesPlan: Add Penicillin-V K 500 mg TID. D/C Levaquin. (3) COPD exacerbation Is this a current diagnosis for this admission?: YesPlan: Ct with Oxygen by N/C 2 L/min; Atropine 0.5 mg q6h; Xopenex 1.25 mg q6h; Xopenex 1.25 mg q2h pr; Ct with Prednisone 60 mg qd po; Singulair 10 mg qd; Spiriva 18 mcg daily. (4) Hyperkalemia Is this a current diagnosis for this admission?: YesPlan: Add Kayexalate 30 g pOx1; avoid medications and potassium containing foods. Repeat CMP this am showed potassium of 4.6. (5) Atrial fibrillation with RVR Is this a current diagnosis for this admission?: YesPlan: Ct with Eliquis 5 mg BID PO; Cardizem CD 180 mg daily po. (6) Hypertension Qualifiers: Hypertension type: essential hypertension Qualified Code(s): I10 - Essential (primary) hypertension Is this a current diagnosis for this admission?: YesPlan: Ct with Lisinopril 10 mg daily po; Cardizem CD 180 mg daily po; 2 G sodium diet. (7) Diastolic CHF, chronic Is this a current diagnosis for this admission?: YesPlan: Ct with strict in put/output chart; daily wt; Ct with Lisinopril 10 mg daily po ; monitor CMP daily and D/C Lisinopril if persistent hyperkalemia. (8) Congestive heart failure Is this a current diagnosis for this admission?: Yes (9) Reflux esophagitis Is this a current diagnosis for this admission?: YesPlan: Ct with Prevacid 30 mg daily po. (10) Overactive bladder Is this a current diagnosis for this admission?: YesPlan: Ct with Oxybutynin 5 mg daily po. (11) Anemia of chronic disease Is this a current diagnosis for this admission?: YesPlan: Ct with daily CBC. (12) Depression Qualifiers: Depression Type: unspecified Qualified Code(s): F32.9 - Major depressive disorder, single episode, unspecified Is this a current diagnosis for this admission?: YesPlan: Ct with Cymbalta 30 mg daily pO. (13) Anxiety disorder Is this a current diagnosis for this admission?: YesPlan: Ct with Ativan 0.5 mg daily po prn. (14) Dementia Qualifiers: Dementia type: unspecified type Dementia behavioral disturbance: without behavioral disturbance Qualified Code(s): F03.90 - Unspecified dementia without behavioral disturbance Is this a current diagnosis for this admission?: YesPlan: Ct with Aricept 5mg qhs po. (15) DVT prophylaxis Is this a current diagnosis for this admission?: YesPlan: Ct with Eliquis 5 mg BID; ct with SCD. - Time Time Spent with patient: 35 or more minutes Medications reviewed and adjusted accordingly: Yes Anticipated discharge: SNF Within: within 24 hours, when bed available
[2016-07-08] MEDS: NORMAL SALINE 1000 ML 1,000 ML IV PRN (23:53)
[2016-07-08] MEDS: DONEPEZIL HCL 5 MG TABLET PO SCH (23:54)
[2016-07-08] MEDS: LISINOPRIL 10 MG TABLET PO SCH (23:55)
[2016-07-08] MEDS: MONTELUKAST SODIUM 10 MG TABLET PO SCH (23:55)
[2016-07-09] MEDS: LEVALBUTEROL HCL NEB 1.25 MG/3 ML AMPUL NEB SCH ×4 (02:22→19:54)
[2016-07-09] MEDS: IPRATROPIUM BROMIDE 0.02% NEB 0.5 MG/2.5 ML AMPUL NEB SCH ×4 (02:24→19:54)
[2016-07-09 05:04] LABS: ABSOLUTE LYMPHOCYTES (AUTO) 0.9 10^3/uL (0.5-4.7); ABSOLUTE MONOCYTES (AUTO) 0.5 10^3/uL (0.1-1.4); ABSOLUTE NEUT (AUTO) 9.4 10^3/uL (1.7-8.2); BASOPHILS % (AUTO) 0.1 % (0-2); HEMATOCRIT 28.9 % (36.0-47.0); HEMOGLOBIN 9.3 g/dL (12.0-15.5); LYMPHOCYTES % (AUTO) 8.2 % (13-45); MEAN CORPUSCULAR HEMOGLOBIN 33.5 pg (27.0-33.4); MEAN CORPUSCULAR HGB CONC 32.3 g/dL (32.0-36.0); MEAN CORPUSCULAR VOLUME 104 fl (80-97); RED BLOOD COUNT 2.79 10^6/uL (3.72-5.28); RED CELL DISTRIBUTION WIDTH 13.4 % (11.5-14.0); SEGMENTED NEUTROPHILS % (AUTO) 86.7 % (42-78); WHITE BLOOD COUNT 10.9 10^3/uL (4.0-10.5)
[2016-07-09 05:25] LABS: ALANINE AMINOTRANSFERASE 29 U/L (9-52); ALBUMIN 2.9 g/dL (3.5-5.0); ALKALINE PHOSPHATASE 54 U/L (38-126); ANION GAP 8 (5-19); ASPARTATE AMINO TRANSFERASE 18 U/L (14-36); BILIRUBIN,TOTAL 0.3 mg/dL (0.2-1.3); BLOOD UREA NITROGEN 19 mg/dL (7-20); CALCIUM 9.3 mg/dL (8.4-10.2); CARBON DIOXIDE 30 mmol/L (22-30); CHLORIDE 102 mmol/L (98-107); CREATININE RESULT 0.64 mg/dL (0.52-1.25); GLUCOSE 144 mg/dL (75-110); SODIUM 140.1 mmol/L (137-145); TOTAL PROTEIN 6.1 g/dL (6.3-8.2)
[2016-07-09 05:46] LABS: POTASSIUM 5.3 mmol/L (3.6-5.0)
[2016-07-09] MEDS: LANSOPRAZOLE 30 MG TAB.RAP.DR PO SCH (05:58)
[2016-07-09] MEDS: PENICILLIN V POTASSIUM 500 MG TABLET PO SCH ×2 (05:58→14:14)
[2016-07-09] MEDS: DILTIAZEM HCL 180 MG CAPSULE.CR PO SCH (09:52)
[2016-07-09] MEDS: OXYBUTYNIN CHLORIDE 5 MG TABLET PO SCH (09:52)
[2016-07-09] MEDS: LORAZEPAM 1 MG TABLET PO SCH (09:53)
[2016-07-09] MEDS: GUAIFENESIN 600 MG TABLET.SA PO SCH (09:53)
[2016-07-09] MEDS: TIOTROPIUM BROMIDE DPI 5 CAP/KIT (18 MCG/CAP) IH SCH (09:53)
[2016-07-09] MEDS: DULOXETINE HCL 30 MG CAPSULE.DR PO SCH (09:53)
[2016-07-09] MEDS: CEFEPIME HCL 2 GM in DEXTROSE 5%-WATER 50 ML IV SCH (09:53)
[2016-07-09] MEDS: APIXABAN 5 MG TABLET PO SCH (09:53)
[2016-07-09] MEDS ORDERED: PREDNISONE 20 MG TABLET PO SCH (10:00)
--- NOTE | 2016-07-09 10:38 | PDOC DISCHARGE SUMMARY ---
General - Admit/Disc Date/PCP Admission Date/Primary Care Provider: 07/05/16 15:18 SOPHIA NICOLAS Discharge Date: 07/09/16 - Discharge Diagnosis (1) Pneumonia Is this a current diagnosis for this admission?: Yes (2) Urinary tract infection Is this a current diagnosis for this admission?: Yes (3) COPD exacerbation Is this a current diagnosis for this admission?: Yes (4) Hyperkalemia Is this a current diagnosis for this admission?: Yes (5) Atrial fibrillation with RVR Is this a current diagnosis for this admission?: Yes (6) Hypertension Is this a current diagnosis for this admission?: Yes (7) Diastolic CHF, chronic Is this a current diagnosis for this admission?: Yes (8) Congestive heart failure Is this a current diagnosis for this admission?: Yes (9) Reflux esophagitis Is this a current diagnosis for this admission?: Yes (10) Overactive bladder Is this a current diagnosis for this admission?: Yes (11) Anemia of chronic disease Is this a current diagnosis for this admission?: Yes (12) Depression Is this a current diagnosis for this admission?: Yes (13) Anxiety disorder Is this a current diagnosis for this admission?: Yes (14) Dementia Is this a current diagnosis for this admission?: Yes (15) DVT prophylaxis Is this a current diagnosis for this admission?: Yes - Additional Information Resuscitation Status: Full Code Discharge Activity: Activity As Tolerated Home Medications: Albuterol Sulfate [Proair HFA] 2 puff IH Q4HP PRN 05/05/13 Cetirizine HCl [Zyrtec 10 mg Tablet] 1 tab PO DAILY 05/05/13 Diltiazem HCl [Diltiazem ER] 180 mg PO QAM 05/05/13 Duloxetine HCl [Cymbalta] 60 mg PO DAILY 05/05/13 Lisinopril 10 mg PO QHS 05/05/13 Montelukast Sodium 10 mg PO QHS 05/05/13 Oxybutynin Chloride 5 mg PO QHS 05/05/13 Pnv with Ca,No.72/Iron,Carb/FA [ Plus Iron Tablet] 1 each PO DAILY 05/05 Ca Cmb No.1/Vit D3/B-6/FA/B12 [Vitamin D3 1,000 Unit Tablet] 1 tab PO DAILY 07/04 Donepezil HCl [Aricept 5 mg Tablet] 5 mg PO QHS 02/19/14 Tiotropium [place] [Spiriva [place] 18 mcg/dose (30 Dose)] 1 cap IH DAILY 07/04 Alendronate Sodium [Fosamax 70 mg Tablet] 70 mg PO WE@1000 PRN 06/19/16 Apixaban [Eliquis] 5 mg PO BID 06/19/16 Atorvastatin Calcium 40 mg PO QHS 07/05/16 Guaifenesin [Mucinex Sr 600 mg Tablet.sa] 600 mg PO Q12 #30 tablet.sa 07/09/16 Lorazepam [Ativan 1 mg Tablet] 1 mg PO BID PRN #60 07/09/16 Penicillin V Potassium [Penicillin Vk 500 mg Tablet] 500 mg PO Q8 #21 tablet History of Present Illness Patient complains of: Left sided chest pain and dyspnea History of Present Illness: CRUZ DILL is a 80 year old female Hospital Course Hospital Course: 80 yr old woman who was admitted for left lower lobe pneumonia and COPD exacerbation and was treated with Cefepime and Levaquin.Her urine culture grew E.fecalis resistant to Levaquin and sensitive to Penicillin. Levaquin was later D/C and switched to Penicillin-V K. She has ambulatory dysfunction due prolonged hospital admission at [facility] previous week and this present admission, hence her daughter who is her POA requested short term REHAB and pt was accepted at [facility].She will be transferred there on 07/09/2016.Pt and daughter are in agreement with this plan of care. Physical Exam Vital Signs: Temp Pulse Resp BP Pulse Ox 97.6 F 83 16 101/84 100 07/09/16 07:58 07/09/16 07:58 07/09/16 07:58 07/09/16 07:58 07/09/16 07:58 Intake & Output 07/08/16 07/09/16 07/10/16 06:59 06:59 06:59 Intake Total 3027 3422 Balance 3027 3422 Weight 62.2 kg 63.6 kg General appearance: PRESENT: no acute distress, well-developed, well-nourished Head exam: PRESENT: atraumatic, normocephalic Eye exam: PRESENT: EOMI, PERRLA Ear exam: PRESENT: normal external ear exam, TM's normal bilaterally Mouth exam: PRESENT: neck supple Neck exam: PRESENT: full ROM Respiratory exam: PRESENT: decreased breath sounds, symmetrical Cardiovascular exam: PRESENT: irregular rhythm, +S1, +S2 Pulses: PRESENT: +2 pedal pulses bilateral GI/Abdominal exam: PRESENT: normal bowel sounds, soft Neurological exam: PRESENT: alert, awake, oriented to person, oriented to place , oriented to time Psychiatric exam: PRESENT: normal mood Results Laboratory Results: 07/09/16 04:39 07/09/16 04:39 07/09/16 07/09/16 04:39 04:39 WBC 10.9 H RBC 2.79 L Hgb 9.3 L Hct 28.9 L MCV 104 H MCH 33.5 H MCHC 32.3 RDW 13.4 Plt Count 390 Seg Neutrophils % 86.7 H Lymphocytes % 8.2 L Monocytes % 5.0 Eosinophils % 0.0 Basophils % 0.1 Absolute Neutrophils 9.4 H Absolute Lymphocytes 0.9 Absolute Monocytes 0.5 Absolute Eosinophils 0.0 Absolute Basophils 0.0 Sodium 140.1 Potassium 5.3 H D Chloride 102 Carbon Dioxide 30 Anion Gap 8 BUN 19 Creatinine 0.64 Est GFR ( Amer) > 60 Est GFR (Non-Af Amer) > 60 Glucose 144 H Calcium 9.3 Total Bilirubin 0.3 AST 18 ALT 29 Alkaline Phosphatase 54 Total Protein 6.1 L Albumin 2.9 L 07/07/16 09:00 Sputum Gram Stain - Final 07/07/16 09:00 Sputum Sputum Culture - Final C.albicans/C.dubliniensis Reduced Normal Dilcia 07/05/16 07/05/16 16:07 16:07 Creatine Kinase < 20 L Troponin I < 0.012 Impressions: Chest X-Ray 07/05/16 00:00 IMPRESSION: Consolidative process in the left lung base as noted above Chest CT 07/05/16 15:27 IMPRESSION: 1. Re- demonstration of a left sided pleural effusion, layering. Adjacent compressive atelectasis versus consolidation. Background of peripheral scarring/ fibrosis bilaterally. 2. Scant pericardial effusion. Ectatic ascending aorta.
[2016-07-09] MEDS ORDERED: LORAZEPAM 0.5 MG TABLET PO SCH (18:00)
[2016-07-09 20:02] VITALS: BP 114/60
== END 2016-07-09 20:15 | DRG 194 ==
LOC: ER 11:31 → EH 15:18 → UNDOADMIN 16:02 → EH 16:02 → 5 18:07
PROVIDERS: ADMIT Internal Medicine
PROC: 3E0F73Z Introduction of Anti-inflammatory into Respiratory Tract, Via Natural or Artificial Opening (ICD-10-PCS; principal; 2016-07-05)
DX: J18.1 Lobar pneumonia, unspecified organism (principal); N39.0 Urinary tract infection, site not specified; J44.1 Chronic obstructive pulmonary disease with (acute) exacerbation; I50.32 Chronic diastolic (congestive) heart failure; B95.2 Enterococcus as the cause of diseases classified elsewhere; E87.5 Hyperkalemia; I11.0 Hypertensive heart disease with heart failure; M19.90 Unspecified osteoarthritis, unspecified site; J45.909 Unspecified asthma, uncomplicated; N32.81 Overactive bladder; K21.9 Gastro-esophageal reflux disease without esophagitis; F03.90 Unspecified dementia, unspecified severity, without behavioral disturbance, psychotic disturbance, mood disturbance, and anxiety; F41.9 Anxiety disorder, unspecified; D63.8 Anemia in other chronic diseases classified elsewhere; I48.2 Chronic atrial fibrillation; M81.0 Age-related osteoporosis without current pathological fracture; Z90.49 Acquired absence of other specified parts of digestive tract
CPT/HCPCS: 36415; 71020; 71250; 80048; 80053; 81001; 82550; 82553; 82962; 83880; 84484; 85025; 87040; 87070; 87086; 87088; 87186; 87205; 93005; 93010; 94640; 96365; 99291; J0692; J1956; J3490; J7030; J7512; J7620